=== PATIENT | male | born 1985 | race American Indian/Alaskan Native ===

== ENCOUNTER 2018-12-20 09:44 | Emergency (ER) | payer SELFPAY ==
[2018-12-20 10:04] VITALS: BP 124/77
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
== END 2018-12-20 10:45 | disposition left against medical advice (07) ==
LOC: ED 09:44
DX: M54.9 Dorsalgia, unspecified (principal); G89.29 Other chronic pain; Z88.6 Allergy status to analgesic agent; Z53.21 Procedure and treatment not carried out due to patient leaving prior to being seen by health care provider

== ENCOUNTER 2019-12-22 20:24 | Emergency (ER) | payer OTHER | END 2019-12-22 21:12 | disposition left against medical advice (07) | LOC: ED 20:24 | DX: R07.89 Other chest pain (principal); Z53.21 Procedure and treatment not carried out due to patient leaving prior to being seen by health care provider ==

== ENCOUNTER 2020-11-25 12:04 | Emergency (ER) | payer SELFPAY ==
[2020-11-25] MEDS ORDERED: ASPIRIN 325 MG TAB PO ONE (12:38)
[2020-11-25] MEDS ORDERED: ALUM-MAG HYDROXIDE-SIMETHICONE 200-200-20MG/5ML ORAL LIQD 30 ML PO ONE (12:51)
[2020-11-25] MEDS ORDERED: LIDOCAINE VISCOUS 2% 15 ML ORAL LIQD PO ONE (12:51)
--- NOTE | 2020-11-25 12:56 | Emergency Department Report ---
HPI - General Chief Complaint: Chest Pain Time Seen by Provider: 11/25/20 12:41 - HPI HPI: Room 7 The patient is a 35-year-old male present with a chief complaint of burning chest and throat pain. The patient states for the past 6 or 7 months whenever using he has what sounds like acid reflux. Patient states he has a burning sensation rising in his chest after meals and when he lies down. Patient states he has not tried any uqac-soc-yyfoqre medications. Patient denies any actual vomiting or history of fever. ED Past Medical Hx - Past Medical History Previous Medical History?: No - Surgical History Past Surgical History?: Yes Additional Surgical History: left elbow repair - Family History Family history: no significant - Social History Smoking Status: Former Smoker (None for over 10 years) Substance Use Type: None ( denies illicit drug use), Alcohol (Occasional) - Medications Home Medications: Home Medications Medication Instructions Recorded Confirmed Last Taken Type Famotidine [Pepcid] 20 mg PO BID #60 tablet 11/25/20 Unknown Rx guaiFENesin [Guaifenesin] 400 mg PO Q4H PRN #30 tablet 11/25/20 Unknown Rx ED Review of Systems ROS: Stated complaint: CHEST AND PAIN / THROAT PAIN / HEART BURN Other details as noted in HPI Constitutional: denies: fever Eyes: denies: eye pain ENT: throat pain Respiratory: denies: cough Cardiovascular: chest pain Endocrine: no symptoms reported Gastrointestinal: denies: vomiting Genitourinary: denies: dysuria Musculoskeletal: denies: back pain Neurological: denies: headache Physical Exam - Physical Exam Physical Exam: GENERAL: The patient is well-developed well-nourished male lying on stretcher not appearing to be in acute distress. [] HEENT: Normocephalic. Atraumatic. Extraocular motions are intact. Patient has moist mucous membranes. Oropharynx clear NECK: Supple. Trachea midline CHEST/LUNGS: Clear to auscultation. There is no respiratory distress noted. HEART/CARDIOVASCULAR: Regular. There is no tachycardia. There is no gallop rub or murmur. ABDOMEN: Abdomen is soft, nontender. Patient has normal bowel sounds. There is no abdominal distention. SKIN: There is no rash. There is no edema. There is no diaphoresis. NEURO: The patient is awake, alert, and oriented. The patient is cooperative. The patient has no focal neurologic deficits. The patient has normal speech. GCS 15 MUSCULOSKELETAL: There is no evidence of acute injury. ED Course - Reevaluation(s) Reevaluation #1: 11/25/20 13:55 Patient states he no longer has the burning pain in his chest after taking the GI cocktail. ED Medical Decision Making - Lab Data Result diagrams: 11/25/20 12:50 Laboratory Tests 11/25/20 11/25/20 12:50 12:50 WBC 5.6 RBC 4.98 Hgb 14.5 Hct 42.8 MCV 86 MCH 29 MCHC 34 RDW 14.7 Plt Count 282 Lymph % (Auto) 48.0 H [place] % (Auto) 7.0 Eos % (Auto) 3.3 Baso % (Auto) 1.0 Lymph # (Auto) 2.7 [place] # (Auto) 0.4 Eos # (Auto) 0.2 Baso # (Auto) 0.1 Seg Neutrophils % 40.7 Seg Neutrophils # 2.3 Sodium 138 Potassium 4.2 Chloride 102.7 Carbon Dioxide 26 Anion Gap 14 BUN 9 Creatinine 0.9 Estimated GFR > 60 BUN/Creatinine Ratio 10 Glucose 90 Calcium 9.5 Total Bilirubin 0.80 AST 13 ALT 12 Alkaline Phosphatase 42 Troponin T < 0.010 Total Protein 7.3 Albumin 4.5 Albumin/Globulin Ratio 1.6 - EKG Data -: EKG Interpreted by Me EKG shows normal: sinus rhythm Rate: normal - EKG Data When compared to previous EKG there are: previous EKG unavailable Interpretation: other (No ischemic changes seen) - Differential Diagnosis GERD, ACS, atypical chest pain, indigestion Critical care attestation.: If time is entered above; I have spent that time in minutes in the direct care of this critically ill patient, excluding procedure time. ED Disposition Clinical Impression: GERD (gastroesophageal reflux disease) Disposition: DC-01 TO HOME OR SELFCARE Is pt being admited?: No Does the pt Need Aspirin: No Condition: Stable Instructions: Food Choices for Gastroesophageal Reflux Disease, Adult, Heartburn, [id number], Gastroesophageal Reflux Disease, Adult, [id number] Additional Instructions: Return to the emergency department should you develop worsening symptoms, inability to tolerate food or liquids, high fever or any other concerns Prescriptions: guaiFENesin [Guaifenesin] 400 mg PO Q4H PRN #30 tablet PRN Reason: Congestion Famotidine [Pepcid] 20 mg PO BID #60 tablet Referrals: [facility] [Provider Group] - 3-5 Days AMBER BUTTS MD [Staff Physician] - 3-5 Days (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 Please follow-up with him for further evaluation) Time of Disposition: 14:15 Heart Score - HEART Score History: Slightly suspicious EKG: Normal Age: < 45 Risk factors: 1-2 risk factors Troponin: < normal limit HEART Score: 1 - EKG Read Time Time EKG Completed: 12:19 EKG Read Time: 12:24
--- NOTE | 2020-11-25 13:08 | XRay Report ---
CHEST 2 VIEWS INDICATION / CLINICAL INFORMATION: chest pain. FINDINGS: SUPPORT DEVICES: None. HEART / MEDIASTINUM: No significant abnormality. LUNGS / PLEURA: No significant pulmonary or pleural abnormality. No pneumothorax. ADDITIONAL FINDINGS: No significant additional findings. IMPRESSION: 1. No acute findings. Signer Name: Tavon Wilson MD Signed: 11/25/2020 1:03 PM Workstation Name: [id number]
[2020-11-25 13:25] LABS: Alanine Aminotransferase 12 units/L (7-56); Albumin 4.5 g/dL (3.9-5); BUN/Creatinine Ratio 10; Blood Urea Nitrogen 9 mg/dL (9-20); Calcium 9.5 mg/dL (8.4-10.2); Hemolysis Index 6
[2020-11-25 14:04] LABS: Basophils # (Auto) 0.1 K/mm3 (0.0-0.1); Eosinophils # (Auto) 0.2 K/mm3 (0.0-0.4); Eosinophils % (Auto) 3.3 % (0.0-4.3); Hematocrit 42.8 % (35.5-45.6); Hemoglobin 14.5 gm/dl (11.8-15.2); Lymphocytes # (Auto) 2.7 K/mm3 (1.2-5.4); Mean Corpuscular HGB Conc 34 % (32-34); Mean Corpuscular Volume 86 fl (84-94); Monocytes # (Auto) 0.4 K/mm3 (0.0-0.8); Platelet Count 282 K/mm3 (140-440); Red Blood Count 4.98 M/mm3 (3.65-5.03); Red Cell Distribution Width 14.7 % (13.2-15.2)
[2020-11-25 14:24] VITALS: BP 134/79
--- NOTE | 2020-11-28 09:11 | Electrocardiograph Report ---
[facility] Test Date: 2020-11-25 Test Time: 12:19:58 Pat Name: IVELISSE FAYE Department: Room: Gender: M [employer] Machine Operator: SNEHAL : 1985 Requested By: NEHA YOUNG Order Number: [id number] Reading MD: Dakota Pride Measurements Intervals [place] Rate: 58 P: 71 AL: 172 QRS: 75 QRSD: 85 T: 55 QT: 416 QTc: 408 Interpretive Statements Sinus bradycardia No previous ECG available for comparison Electronically Signed On 11-28-2020 9:10:54 EDT by Dakota Pride
== END 2020-11-25 14:23 | disposition home or self-care (01) ==
LOC: ED 12:04
DX: K21.9 Gastro-esophageal reflux disease without esophagitis (principal); Z79.899 Other long term (current) drug therapy; Z87.891 Personal history of nicotine dependence; Z98.890 Other specified postprocedural states; Z88.6 Allergy status to analgesic agent
CPT/HCPCS: 36415; 71046; 80053; 84484; 85025; 93005